=== PATIENT | female | born 1985 | race Hispanic/Latino ===

== ENCOUNTER → 2019-05-14 | Outpatient (CLI) | payer OTHER ==
--- NOTE | 2019-05-14 19:28 | ECHO ---
DATE OF PROCEDURE: 05/14/2019 REFERRING PHYSICIAN: LM Flannery INDICATION: History of transposition of great arteries with repair. Height 170 cm, weight 91 kg. DIMENSIONS: IVS: 0.9 LV: 4.7 LVPW: 0.8 LA: 3.1 Aorta: 2.0 RV: 2.5 Left atrial volume index: 16 E wave velocity: 82 E prime septal: 13.7 E prime lateral: 12.3 FINDINGS: The study is of very limited technical quality with difficult visualization. I am not certain what is the underlying rhythm. It is regular with heart rate constant between 93 and 95 beats per minute (bpm); I am suspicious that there is underlying atrial flutter. Left ventricle is normal size and has normal systolic function, I estimate ejection fraction (EF) around 60-65%. Right ventricle appears dilated and possibly mildly hypokinetic. Left atrium is normal size. Right atrium is severely enlarged. Aortic and mitral valves appear normal. Tricuspid and pulmonic valves were poorly seen. Trace pericardial effusion is noted. Inferior vena cava was not visualized. Aortic root and aortic arch appear normal. Doppler interrogation of aortic valve reveals no stenosis and trace insufficiency. There is also trace mitral insufficiency. There is poorly visualized insufficient jet on tricuspid valve. Calculated pulmonary artery pressure is in 30s assuming normal central venous pressure, which would correspond to mild pulmonary hypertension. Evaluation of diastolic function is inconclusive. I do not appreciate any A-wave on mitral inflow, but tissue Doppler velocities of mitral annulus are normal. CONCLUSIONS: 1. Study is of very limited technical quality. 2. Unclear underlying rhythm, heart rate is steady around 93-95 bpm, suspicious of underlying atrial flutter. 3. Normal LV size and systolic function. 4. Right ventricle appears dilated. 5. Severe right atrial enlargement. 6. No hemodynamically significant valvular disease. 7. Unable to estimate central venous pressure but at least mild pulmonary hypertension. COMMENT: The study was of poor technical quality. If more detailed evaluation is necessary, then transesophageal echocardiogram would certainly provide much better resolution.
== END ==
LOC: M CARPUL 08:32
PROVIDERS: ATTEND Physician Assistant
DX: Q24.9 Congenital malformation of heart, unspecified (principal); I27.20 Pulmonary hypertension, unspecified; I51.7 Cardiomegaly

== ENCOUNTER → 2019-05-29 | Outpatient (CLI) | payer OTHER ==
[2019-05-29 12:00] LABS: BASO % 0.5 % (0.0-1.0); EOS # 0.1 10^3/uL (0.0-0.5); EOS % 1.5 % (0.0-3.0); HEMOGLOBIN 13.2 g/dl (12.0-15.5); LYMPH # 1.7 10^3/uL (1.5-5.0); LYMPH % 27.8 % (24.0-44.0); MEAN CORPUSCULAR HEMOGLOBIN 28.7 pg (27.0-33.0); MEAN CORPUSCULAR HGB CONC 30.7 g/dl (32.0-36.5); MEAN CORPUSCULAR VOLUME 93.5 fl (80.0-96.0); MONO # 0.5 10^3/uL (0.0-0.8); MONO % 8.1 % (0.0-5.0); NEUTROPHILS # 3.8 10^3/uL (1.5-8.5); NEUTROPHILS % 61.6 % (36.0-66.0); PLATELET COUNT, AUTOMATED 282 10^3/uL (150-450); WHITE BLOOD COUNT 6.2 10^3/uL (4.0-10.0)
[2019-05-29 12:32] LABS: HEMOGLOBIN A1c 5.6 %
[2019-05-29 12:45] LABS: ALBUMIN 3.9 GM/DL (3.2-5.2); ALT/SGPT 26 U/L (12-78); BILIRUBIN,TOTAL 0.4 MG/DL (0.2-1.0); BLOOD UREA NITROGEN 10 MG/DL (7-18); CALCIUM LEVEL 9.1 MG/DL (8.5-10.1); CARBON DIOXIDE LEVEL 28 MEQ/L (21-32); CHLORIDE LEVEL 106 MEQ/L (98-107); CHOLESTEROL LEVEL 222 MG/DL (<200); CHOLESTEROL RISK RATIO 3.171 (<5); CREATININE FOR GFR 0.65 MG/DL (0.55-1.30); FREE T4 1.15 NG/DL (0.76-1.46); GLOMERULAR FILTRATION RATE > 60.0 (>60); GLUCOSE, FASTING 95 MG/DL (70-100); HDL CHOLESTEROL 70 MG/DL (>40); LDL CHOLESTEROL 134 MG/DL (<100); NON-HDL-C 152 MG/DL; POTASSIUM SERUM 4.6 MEQ/L (3.5-5.1); SODIUM LEVEL 140 MEQ/L (136-145); THYROID STIMULATING HORMONE 0.987 uIU/ML (0.358-3.740); TOTAL PROTEIN 7.3 GM/DL (6.4-8.2); TRIGLYCERIDES LEVEL 88 MG/DL (<150); URIC ACID 4.6 MG/DL (2.6-6.0)
[2019-05-29 15:36] LABS: TOTAL 25(OH) VITAMIN D 22.7 NG/ML (30.0-100.0)
== END ==
LOC: M LRY 09:36
PROVIDERS: ATTEND Physician Assistant
DX: Q60.0 Renal agenesis, unilateral (principal); Z13.29 Encounter for screening for other suspected endocrine disorder; Z13.220 Encounter for screening for lipoid disorders

== ENCOUNTER → 2019-06-12 | Outpatient (CLI) | payer OTHER ==
--- NOTE | 2019-06-12 14:42 | REP ---
SCOLIOSIS SERIES: Two views. HISTORY: Unspecified scoliosis. No comparison imaging. FINDINGS: Upright AP views of the thoracic and lumbar spine show no structural vertebral abnormality. There are surgical clips projecting in the left mediastinum. The heart is mildly prominent in size. There is opaque material projecting in the lumen of the stomach. There is a mild levoconvex curvature in the lumbar spine, 12 degrees as measured from L5 through T12 . There is a 12 degrees dextroconvex curve in the thoracic spine measured from T5 through T12. There are 13 thoracic ribs bilaterally. IMPRESSION: Mild thoracolumbar scoliosis. Evidence of cardiomegaly. Prior mediastinal surgery. Electronically Signed by Roddy Almazan MD 06/12/2019 05:48 P
== END ==
LOC: M LRY 12:42
PROVIDERS: ATTEND Physician Assistant
DX: M41.85 Other forms of scoliosis, thoracolumbar region (principal); I51.7 Cardiomegaly

== ENCOUNTER → 2019-06-29 | Outpatient (CLI) | payer OTHER ==
[2019-07-02 19:12] LABS: FOLATE 18.9 NG/ML (>5.4)
== END ==
LOC: M LRY 11:03
PROVIDERS: ATTEND Psychiatry & Neurology Neurology
DX: R51 Headache (principal); E53.8 Deficiency of other specified B group vitamins; R41.3 Other amnesia

== ENCOUNTER → 2019-09-07 | Outpatient (CLI) | payer OTHER | LOC: M LRY 14:15 | PROVIDERS: ATTEND Family Medicine | DX: R63.2 Polyphagia (principal) ==

== ENCOUNTER → 2019-11-05 | Outpatient (CLI) | payer OTHER ==
--- NOTE | 2019-11-05 16:25 | REP ---
Clinical: Lower back and pelvic pain. Technique: Two frontal views of the pelvis. Findings: No acute fracture dislocation. Joint spaces are symmetric and normal. Surrounding soft tissues are unremarkable. Impression: Normal pelvic radiographs. Electronically Signed by Jean Paul Haney MD 11/05/2019 04:17 P
--- NOTE | 2019-11-05 16:28 | REP ---
Clinical: Lower back pain . Technique: AP, lateral, bilateral oblique, flexion/extension, and coned-down views. Findings: Alignment and lordosis is maintained. The vertebral bodies including transverse process and spinous processes are intact and without acute fracture / compression injury or subluxation. No evidence for spondylolysis or spondylolisthesis. Endplate sclerosis with moderate disc space narrowing and mild spurring at the L5-S1 level consistent with moderate focal degenerative spondylosis. Impression: Focal degenerative changes at the L5-S1 level. Electronically Signed by Jean Paul Haney MD 11/05/2019 04:19 P
== END ==
LOC: M LRY 15:52
PROVIDERS: ATTEND Physician Assistant
DX: M54.5 Low back pain (principal)

== ENCOUNTER → 2019-11-28 | Outpatient (REF) | payer OTHER ==
[2020-01-12 14:08] LABS: ALBUMIN 3.9 GM/DL (3.2-5.2); ALT/SGPT 23 U/L (12-78); BILIRUBIN,TOTAL 0.3 MG/DL (0.2-1.0); BLOOD UREA NITROGEN 11 MG/DL (7-18); CALCIUM LEVEL 8.9 MG/DL (8.5-10.1); CARBON DIOXIDE LEVEL 27 MEQ/L (21-32); CHLORIDE LEVEL 106 MEQ/L (98-107); CHOLESTEROL LEVEL 221 MG/DL (<200); CHOLESTEROL RISK RATIO 3.453 (<5); CREATININE FOR GFR 0.81 MG/DL (0.55-1.30); FREE T4 1.01 NG/DL (0.76-1.46); GLOMERULAR FILTRATION RATE > 60.0 (>60); GLUCOSE, FASTING 89 MG/DL (70-100); HDL CHOLESTEROL 64 MG/DL (>40); HEMOGLOBIN A1c 5.5 %; LDL CHOLESTEROL 129 MG/DL (<100); NON-HDL-C 157 MG/DL; POTASSIUM SERUM 4.4 MEQ/L (3.5-5.1); SODIUM LEVEL 138 MEQ/L (136-145); THYROID STIMULATING HORMONE 0.792 uIU/ML (0.358-3.740); TOTAL 25(OH) VITAMIN D 24.5 NG/ML (30.0-100.0); TOTAL PROTEIN 7.4 GM/DL (6.4-8.2); TRIGLYCERIDES LEVEL 141 MG/DL (<150)
== END ==
LOC: M LAB REF 08:34
PROVIDERS: ATTEND Family Medicine
DX: E78.00 Pure hypercholesterolemia, unspecified (principal); R73.9 Hyperglycemia, unspecified; E55.9 Vitamin D deficiency, unspecified; Z87.820 Personal history of traumatic brain injury